=== PATIENT | female | born 1995 | race African-American/Black ===

== ENCOUNTER 2018-12-14 10:37 | Emergency (ER) | payer OTHER | END 2018-12-14 11:33 | disposition left against medical advice (07) | LOC: ERS 10:37 | DX: Z53.21 Procedure and treatment not carried out due to patient leaving prior to being seen by health care provider (principal) ==

== ENCOUNTER 2018-12-14 20:20 | Emergency (ER) | payer OTHER, SELFPAY ==
[2018-12-14 21:02] LABS: #Basophils 0.1 thou/uL (0.0-0.2); #Eosinphils 0.1 thou/uL (0.0-0.7); #Lymphocytes 1.7 thou/uL (1.20-3.40); #Monocytes 0.4 thou/uL (0.11-0.59); #Neutrophils 3.8 thou/uL (1.40-6.50); %Basophils 0.8 % (0.0-1.0); %Eosinophils 2.2 % (0.0-10.0); %Lymphocytes 28.1 % (21.0-51.0); %Monocytes 6.6 % (0.0-10.0); %Neutrophils 62.3 % (42.0-75.0); Hemoglobin 13.2 g/dL (12.0-16.0); Mean Corpuscular HGB CONC 32.4 g/dL (32.0-36.0); Mean Corpuscular Hemoglobin 28.1 pg (27.0-31.0); Mean Corpuscular Volume 86.6 fL (78.0-98.0); Mean Platelet Volume 8.5 fL (7.4-10.4); Platelet Count 215 thou/uL (130-400); RBC Distribution Width 12.1 % (11.5-14.5); Red Blood Cell (RBC) Count 4.69 mill/uL (4.20-5.40); White Blood Cell (WBC) Count 6.1 thou/uL (4.8-10.8)
[2018-12-14 21:06] LABS: Bacteria/HPF None Seen HPF (None Seen); Bilirubin Negative (Negative); Blood, Urine 2+ (Negative); Clarity Clear (Clear); Glucose, Urine (Dipstick) Normal (Negative); Leukocyte Negative Leu/uL (Negative); Nitrite Negative (Negative); Protein, Urine (Dipstick) Negative (Neg-Trace); RBC/HPF 0-3 HPF (0-3); Urobilinogen Normal mg/dL (Less than 2); WBC/HPF 0-3 HPF (0-3)
== END 2018-12-14 21:54 | disposition home or self-care (01) ==
LOC: ERS 20:20
DX: N93.9 Abnormal uterine and vaginal bleeding, unspecified (principal); F17.210 Nicotine dependence, cigarettes, uncomplicated
CPT/HCPCS: 36415; 81003; 81015; 84702; 85025; 86900; 86901; 87480; 87491; 87510; 87591; 87660; 99284

== ENCOUNTER 2019-01-03 18:53 | Emergency (ER) | payer SELFPAY | END 2019-01-03 20:23 | disposition home or self-care (01) | LOC: ERS 18:53 | DX: J20.8 Acute bronchitis due to other specified organisms (principal); F32.9 Major depressive disorder, single episode, unspecified; F17.210 Nicotine dependence, cigarettes, uncomplicated | CPT/HCPCS: 99283 ==

== ENCOUNTER 2019-01-09 14:48 | Emergency (ER) | payer SELFPAY ==
[2019-01-09] MEDS ORDERED: Acetaminophen 500 MG TAB ONE (15:03)
[2019-01-09] MEDS ORDERED: Ondansetron ODT 4 MG TAB ONE ×2 (15:03→15:54)
--- NOTE | 2019-01-09 15:18 | RAD ---
Chest AP view INDICATION: Vomiting COMPARISON: None FINDINGS: Lungs:The lungs are clear Cardiac silhouette:The cardiomediastinal silhouette appears within normal limits. Pulmonary vasculature:Normal Pleural spaces:No pleural effusion or pneumothorax is demonstrated. Upper abdomen:No abnormality seen. Osseous structures: No acute osseous abnormality. Additional findings:None. IMPRESSION: No acute cardiopulmonary abnormality.
== END 2019-01-09 16:00 | disposition home or self-care (01) ==
LOC: ERS 14:48
DX: R11.2 Nausea with vomiting, unspecified (principal); F32.9 Major depressive disorder, single episode, unspecified; F17.210 Nicotine dependence, cigarettes, uncomplicated
CPT/HCPCS: 71045; 87804; Q0162

== ENCOUNTER 2019-02-05 16:01 | Emergency (ER) | payer OTHER, SELFPAY ==
[2019-02-05 16:47] LABS: Bilirubin Negative (Negative); Blood, Urine Negative (Negative); Clarity Clear (Clear); Glucose, Urine (Dipstick) Normal (Negative); Leukocyte Negative Leu/uL (Negative); Nitrite Negative (Negative); Protein, Urine (Dipstick) 10 mg/dL (Neg-Trace); Urobilinogen Normal mg/dL (Less than 2)
[2019-02-05 16:48] LABS: #Eosinphils 0.1 thou/uL (0.0-0.7); #Lymphocytes 1.9 thou/uL (1.20-3.40); #Monocytes 0.5 thou/uL (0.11-0.59); #Neutrophils 5.3 thou/uL (1.40-6.50); %Basophils 0.4 % (0.0-1.0); %Eosinophils 0.9 % (0.0-10.0); %Lymphocytes 24.1 % (21.0-51.0); %Monocytes 6.3 % (0.0-10.0); %Neutrophils 68.4 % (42.0-75.0); Hemoglobin 12.7 g/dL (12.0-16.0); Mean Corpuscular HGB CONC 32.8 g/dL (32.0-36.0); Mean Corpuscular Hemoglobin 28.2 pg (27.0-31.0); Mean Corpuscular Volume 86.1 fL (78.0-98.0); Mean Platelet Volume 8.7 fL (7.4-10.4); Platelet Count 210 thou/uL (130-400); RBC Distribution Width 11.8 % (11.5-14.5); White Blood Cell (WBC) Count 7.8 thou/uL (4.8-10.8)
[2019-02-05 17:07] LABS: ALT (SGPT) 13 U/L (8-55); AST (SGOT) 14 U/L (5-34); Albumin 3.9 g/dL (3.5-5.0); Alkaline Phosphatase 65 U/L (40-110); Anion Gap 10 mmol/L (10-20); BUN (Urea Nitrogen) 7 mg/dL (7.0-18.7); Bilirubin, Total 0.2 mg/dL (0.2-1.2); Calc. Creatinine Clearance 0 mL/min (70-130); Calcium 8.8 mg/dL (7.8-10.44); Carbon Dioxide 24 mmol/L (22-29); Chloride 105 mmol/L (98-107); Estimated GFR-MDRD Greater than 90; Globulin 3.3 g/dL (2.4-3.5); Glucose 74 mg/dL (70-105); Potassium 3.9 mmol/L (3.5-5.1); Protein, Total 7.2 g/dL (6.0-8.3); Sodium 135 mmol/L (136-145)
--- NOTE | 2019-02-05 19:15 | ULT ---
Exam: Pelvic ultrasound HISTORY: Pelvic pain COMPARISON: None TECHNIQUE: Multiple grayscale and color Doppler images were obtained in a transabdominal and transvag inal pelvic ultrasound. Spectral analysis of the Doppler waveforms of the ovaries were performed. FINDINGS: CERVIX: Partially obscured due to shadowing. UTERUS AND ENDOMETRIAL CANAL: There is a fluid collection containing both a pole and a yolk sac . The crown-rump length measures 1.69 cm corresponding to gestational age by ultrasound of 8 weeks and 1 day. Cardiac Doppler evaluation does demonstrate heart tones with a heart rate of 1 71 bpm. There is an area of heterogeneity seen in a subchorionic location grossly measuring 1.9 cm x 1.4 cm. This is most suggestive of a subchorionic hemorrhage in the lower uterine segment. No free fluid is present. RIGHT OVARY: Normal flow, without focal mass. LEFT OVARY:There is a dominant anechoic structure in the left ovary measuring 2.3 cm which may repres ent a ovarian cyst and possibly corpus luteal cyst. Left ovary otherwise has a normal appearance with flow demonstrated. IMPRESSION: 1. Evidence of a subchorionic hemorrhage in the lower uterine segment with greatest dimension of 1.9 cm. Continued follow-up evaluation is recommended. 2. Single intrauterine gestation with heart tones documented. The estimated gestational age by measurement of the crown-rump length is 8 weeks and 1 day. 3. Left ovarian cyst, and this may represent corpus luteal cyst.
== END 2019-02-05 19:51 | disposition home or self-care (01) ==
LOC: ERS 16:01
DX: O20.8 Other hemorrhage in early pregnancy (principal); O99.341 Other mental disorders complicating pregnancy, first trimester; F32.9 Major depressive disorder, single episode, unspecified
CPT/HCPCS: 36415; 76856; 80053; 81003; 84702; 85025

== ENCOUNTER 2019-02-12 18:14 | Emergency (ER) | payer OTHER | END 2019-02-12 19:09 | disposition home or self-care (01) | LOC: ERS 18:14 | DX: O99.511 Diseases of the respiratory system complicating pregnancy, first trimester (principal); J10.1 Influenza due to other identified influenza virus with other respiratory manifestations; O99.341 Other mental disorders complicating pregnancy, first trimester; F32.9 Major depressive disorder, single episode, unspecified; Z3A.01 Less than 8 weeks gestation of pregnancy | CPT/HCPCS: 87804; 99283 ==

== ENCOUNTER 2019-02-21 20:31 | Emergency (ER) | payer OTHER ==
--- NOTE | 2019-02-21 21:17 | RAD ---
TWO VIEWS CHEST: 02/21/19 HISTORY: Chest pain. COMPARISON: 04/27/17 obtained from [facility]. FINDINGS: The cardiac silhouette and pulmonary vasculature are within normal limits. The lungs remain clear. Th ere has been no interval change from the prior exam. IMPRESSION: No acute cardiopulmonary process. POS: GREGORY
== END 2019-02-21 21:34 | disposition home or self-care (01) ==
LOC: ERS 20:31
DX: O99.89 Other specified diseases and conditions complicating pregnancy, childbirth and the puerperium (principal); R07.89 Other chest pain; O99.341 Other mental disorders complicating pregnancy, first trimester; F32.9 Major depressive disorder, single episode, unspecified; Z3A.10 10 weeks gestation of pregnancy
CPT/HCPCS: 71046

== ENCOUNTER 2019-03-02 22:17 | Emergency (ER) | payer OTHER ==
--- NOTE | 2019-03-02 23:02 | RAD ---
RADIOGRAPH CHEST 2 VIEWS: DATE: 03/02/2019 HISTORY: 23-year-old female with cough and chest pain FINDINGS: There is no airspace density, pulmonary edema, pleural effusion, pneumothorax, or cardiomegaly. IMPRESSION: No acute cardiopulmonary findings.
== END 2019-03-02 23:32 | disposition home or self-care (01) ==
LOC: ERS 22:17
DX: O99.511 Diseases of the respiratory system complicating pregnancy, first trimester (principal); J06.9 Acute upper respiratory infection, unspecified; O99.341 Other mental disorders complicating pregnancy, first trimester; F32.9 Major depressive disorder, single episode, unspecified; Z3A.11 11 weeks gestation of pregnancy
CPT/HCPCS: 71046; 87804; 93005

== ENCOUNTER 2019-04-08 11:56 | Emergency (ER) | payer MEDICAID ==
[2019-04-08 13:37] LABS: #Lymphocytes 1.3 thou/uL (1.20-3.40); #Monocytes 0.3 thou/uL (0.11-0.59); #Neutrophils 4.6 thou/uL (1.40-6.50); %Basophils 0.7 % (0.0-1.0); %Eosinophils 0.7 % (0.0-10.0); %Lymphocytes 21.1 % (21.0-51.0); %Monocytes 5.1 % (0.0-10.0); %Neutrophils 72.4 % (42.0-75.0); Hemoglobin 11.4 g/dL (12.0-16.0); Mean Corpuscular Hemoglobin 28.7 pg (27.0-31.0); Mean Platelet Volume 8.6 fL (7.4-10.4); Platelet Count 213 thou/uL (130-400); RBC Distribution Width 12.5 % (11.5-14.5); Red Blood Cell (RBC) Count 3.97 mill/uL (4.20-5.40); White Blood Cell (WBC) Count 6.3 thou/uL (4.8-10.8)
[2019-04-08 13:59] LABS: ALT (SGPT) 41 U/L (8-55); AST (SGOT) 26 U/L (5-34); Albumin 3.5 g/dL (3.5-5.0); Alkaline Phosphatase 65 U/L (40-110); Anion Gap 9 mmol/L (10-20); BUN (Urea Nitrogen) 7 mg/dL (7.0-18.7); Bilirubin, Total 0.2 mg/dL (0.2-1.2); Calc. Creatinine Clearance 0 mL/min (70-130); Carbon Dioxide 25 mmol/L (22-29); Chloride 107 mmol/L (98-107); Estimated GFR-MDRD Greater than 90; Globulin 3.2 g/dL (2.4-3.5); Glucose 73 mg/dL (70-105); Lipase 12 U/L (8-78); Potassium 4.1 mmol/L (3.5-5.1); Protein, Total 6.7 g/dL (6.0-8.3); Sodium 137 mmol/L (136-145)
[2019-04-08 14:19] LABS: Bilirubin Negative (Negative); Blood, Urine Negative (Negative); Clarity Turbid (Clear); Glucose, Urine (Dipstick) Normal (Negative); Leukocyte Negative Leu/uL (Negative); Nitrite Negative (Negative); Protein, Urine (Dipstick) Negative (Neg-Trace); Urobilinogen Normal mg/dL (Less than 2)
== END 2019-04-08 14:33 | disposition home or self-care (01) ==
LOC: ERS 11:56
DX: Z34.82 Encounter for supervision of other normal pregnancy, second trimester (principal); Z3A.16 16 weeks gestation of pregnancy
CPT/HCPCS: 36415; 80053; 81003; 83690; 85025

== ENCOUNTER 2019-05-06 11:06 | Emergency (ER) | payer MEDICAID, OTHER ==
[2019-05-06 12:13] LABS: Bilirubin Negative (Negative); Blood, Urine Negative (Negative); Clarity Clear (Clear); Glucose, Urine (Dipstick) Normal (Negative); Leukocyte Negative Leu/uL (Negative); Nitrite Negative (Negative); Protein, Urine (Dipstick) Negative (Neg-Trace); Urobilinogen Normal mg/dL (Less than 2)
[2019-05-06] MEDS ORDERED: Acetaminophen 500 MG TAB ONE (13:34)
== END 2019-05-06 13:45 | disposition home or self-care (01) ==
LOC: ERS 11:06
DX: O99.89 Other specified diseases and conditions complicating pregnancy, childbirth and the puerperium (principal); R51 Headache; R42 Dizziness and giddiness; O10.912 Unspecified pre-existing hypertension complicating pregnancy, second trimester; O99.342 Other mental disorders complicating pregnancy, second trimester; F32.9 Major depressive disorder, single episode, unspecified; Z3A.19 19 weeks gestation of pregnancy
CPT/HCPCS: 81003; 99284

== ENCOUNTER 2019-06-18 08:55 | Day surgery (SDC) | payer OTHER ==
[2019-06-18 09:31] VITALS: BMI 49.9
[2019-06-18 09:38] VITALS: BP 116/66; TEMP 98
[2019-06-18] MEDS ORDERED: hydrALAZINE 20 MG/ML VIAL SLOW IVP PRN (10:08)
[2019-06-18] MEDS ORDERED: Ondansetron ODT 8 MG TAB SL SCH (10:15)
[2019-06-18 11:18] LABS: Bilirubin Negative (Negative); Blood, Urine Negative (Negative); Clarity Clear (Clear); Glucose, Urine (Dipstick) Normal (Negative); Leukocyte 25 Leu/uL (Negative); Nitrite Negative (Negative); Protein, Urine (Dipstick) 10 mg/dL (Neg-Trace); RBC/HPF 0-3 HPF (0-3); Urobilinogen Normal mg/dL (Less than 2)
[2019-06-18 11:20] LABS: Bacteria/HPF 1+ HPF (None Seen)
--- NOTE | 2019-06-18 11:42 | HP ---
PRIMARY OB: Lee Ann Freeman MD CHIEF COMPLAINT: Fever, nausea, vomiting, diarrhea, and shortness of breath. HISTORY OF PRESENT ILLNESS: The patient is a 23-year-old, G3, P2, female, with an intrauterine at 27 weeks and 4 days, who is presenting to Labor and Delivery with a two-day complaint of nausea, vomiting, and diarrhea. She reports that she had measured temperature this morning of 100.4. She reports shortness of breath. Upon further questioning, the patient reports that her shortness of breath has been persistent with this and is not new onset. She denies cough. She denies inability to keep fluids down. The patient has not been hungry and has not been eating as much as usual. The patient reports that she is having [place], but denies any strong uterine contractions. She denies vaginal bleeding, leakage of fluid, urinary urgency or frequency. She does report she is being treated right now for a yeast infection and has been taking aiyx-ytc-xakhufa medications as prescribed by Dr. Freeman. The patient also reports she has had headache these last few days, but also headaches are common with her . The patient denies chest pain. She denies new rashes. She denies constipation. She denies muscle weakness. She is reporting back pain and hip pain and groin pain. The patient reports that she has been in contact with a friend, who was taken to the hospital for similar symptoms and is reported to have tested negative for COVID-19. PAST MEDICAL HISTORY: Depression. PAST SURGICAL HISTORY: Two prior C-sections. SOCIAL HISTORY: Denies drug, alcohol, or tobacco use. ALLERGIES: NO KNOWN DRUG ALLERGIES. MEDICATIONS: 1. vitamins. 2. Wmuw-zvk-ikkkido anti-yeast medication. OB LABS: Unavailable at time of dictation. REVIEW OF SYSTEMS: Per HPI. PHYSICAL EXAMINATION: VITAL SIGNS: Blood pressure of 116/66, pulse of 66, respiratory rate of 18, and temperature of 98. GENERAL: She appears to be in no acute distress. She is alert, oriented, cooperative, and pleasant to interact with. HEAD: Normocephalic and atraumatic. LUNGS: Clear to auscultation bilaterally. HEART: She has regular rate and rhythm. ABDOMEN: Gravid, soft, and nontender. There is no suprapubic tenderness. No upper abdominal tenderness. She does have SI joint tenderness. No CVA tenderness. EXTREMITIES: Nontender and nonedematous. : Exam has been deferred at this time. heart tracings, baseline in the 140s with moderate long-term variability. No accelerations. No decelerations. Appropriate for gestational age. Collected is a UA and a nasal swab for Coronavirus-19. ASSESSMENT AND PLAN: The patient is a 23-year-old multiparous female with an intrauterine at 27 weeks with a couple day history of nausea, occasional vomiting, diarrhea, and fever this morning. The patient at this time appears nontoxic and has normal vital signs at this time. The patient has declined any antiemetics. The patient is being discharged home with instructions to remain home until testing is completed. She has been given a work excuse requesting the same. The patient will be notified hopefully in the next 24 hours, the COVID-19 testing results. The patient is otherwise to follow up with her primary OB as scheduled. Dr. Freeman will be updated to this encounter. Job ID: [id number]
[2019-06-18 18:45] LABS: SARS-CoV-2 MS2 Positive; SARS-CoV-2 N Gene Negative; SARS-CoV-2 S Gene Negative; SARS-CoV-2 orf1ab Negative
--- NOTE | 2019-06-19 07:36 | PDOC.EVN ---
Event Note - Event Note Event Note: covid 19 test reviewed and neg. Pt contacted.
== END 2019-06-18 11:10 | disposition home or self-care (01) ==
LOC: L&D/OP 08:55
PROVIDERS: ATTEND Student in an Organized Health Care Education/Training Program
DX: O99.89 Other specified diseases and conditions complicating pregnancy, childbirth and the puerperium (principal); R50.9 Fever, unspecified; R06.02 Shortness of breath; R19.7 Diarrhea, unspecified; O21.2 Late vomiting of pregnancy; Z3A.27 27 weeks gestation of pregnancy; Z11.59 Encounter for screening for other viral diseases
CPT/HCPCS: 81001; 87635; 99284; Q0162; U0003

== ENCOUNTER 2019-07-18 16:25 | Emergency (ER) | payer OTHER ==
[2019-07-19 11:06] LABS: SARS-CoV-2 MS2 Positive; SARS-CoV-2 N Gene Negative; SARS-CoV-2 S Gene Negative; SARS-CoV-2 orf1ab Negative
== END 2019-07-18 18:05 | disposition home or self-care (01) ==
LOC: ERS 16:25
DX: Z20.828 Contact with and (suspected) exposure to other viral communicable diseases (principal); O99.342 Other mental disorders complicating pregnancy, second trimester; F32.9 Major depressive disorder, single episode, unspecified
CPT/HCPCS: 87635; 99283; U0003

== ENCOUNTER 2019-08-12 22:02 | Day surgery (SDC) | payer OTHER ==
[2019-08-12 22:33] VITALS: BMI 49.8
[2019-08-12] MEDS ORDERED: hydrALAZINE 20 MG/ML VIAL SLOW IVP PRN (23:22)
[2019-08-12] MEDS: Acetaminophen/Codeine 30-300mg Tablet PO SCH ×2 (23:39→23:40)
--- NOTE | 2019-08-13 07:37 | PRG ---
DATE OF SERVICE: 08/12/2019 CHIEF COMPLAINT: Back pain. PRIMARY OB: Dr. Lee Ann Freeman. HISTORY OF PRESENT ILLNESS: The patient is a 23-year-old, G3, P2 female with an intrauterine at 35 weeks and 4 days, presenting to Labor and Delivery with 1-day history of worsening back pain. She reports that she has had this lower back pain now for several weeks and that it has just gotten worse today. She reports that the pain has made it very difficult for her to move without pain. The patient does have a history of 2 prior . She has attempted topical lidocaine and Tylenol. The patient denies fever. She does report headaches, does not have one currently. Reports morning nausea and occasional vomiting. Denies diarrhea. Does report constipation. Denies any new rashes. Reports hip problems accompanying her back pain. Denies vaginal bleeding, leakage of fluid, urinary urgency or frequency. PAST MEDICAL HISTORY: Depression. PAST SURGICAL HISTORY: Two prior C-sections. SOCIAL HISTORY: Denies drug, alcohol, or tobacco use. ALLERGIES: VITAMINS. MEDICATIONS: 1. vitamins. 2. Cihq-dpo-qwcrzld Tylenol. 3. Topical lidocaine in the recent past. OB LABS: Unavailable at time of dictation. REVIEW OF SYSTEMS: Per HPI. PHYSICAL EXAMINATION: VITAL SIGNS: Blood pressure 108/55, pulse of 79, respiratory rate of 18, saturating 98% on room air. GENERAL: She appears to be in some distress with activity and movement and none at rest. She is otherwise alert, oriented, cooperative, and pleasant to interact with. HEAD: Normocephalic, atraumatic. LUNGS: Clear to auscultation bilaterally. HEART: Regular rate and rhythm. ABDOMEN: Gravid, soft, nontender. She does have a lot of point tenderness in her upper gluteal region and around her SI joints, both nothing primarily muscular. EXTREMITIES: Nontender, nonedematous. PELVIS: Cervical exam per nursing staff is fingertip thick and -2 station. heart tracing shows the fetus with a baseline in the 140s with moderate long-term variability, positive 15 x 15 accelerations, no decelerations. Tocometer showing some irritability, but does not appear to match her pain. ASSESSMENT AND PLAN: The patient is a 23-year-old multiparous female, presenting with worsening back pain that seems to be primarily musculoskeletal in nature. We have given her two Tylenol No. 3 to help with the pain in the short run and have given her some gentle stretching exercises that may give her some relief in the long run. The patient has been counseled that if her pain persists over the next couple of days to give her primary provider a call as her next appointment is not until the 22 of August. Fetus has a category 1 tracing and reactive NST. The patient has been given labor precautions. Job ID: [id number]
== END 2019-08-12 23:45 | disposition home or self-care (01) ==
LOC: L&D/OP 22:02
PROVIDERS: ATTEND Student in an Organized Health Care Education/Training Program
DX: O99.89 Other specified diseases and conditions complicating pregnancy, childbirth and the puerperium (principal); M54.5 Low back pain; O34.219 Maternal care for unspecified type scar from previous cesarean delivery; Z3A.35 35 weeks gestation of pregnancy
CPT/HCPCS: 99282

== ENCOUNTER 2019-08-31 19:24 | Day surgery (SDC) | payer OTHER ==
[2019-08-31 19:59] VITALS: BP 120/73; TEMP 98.8; BMI 49.9
[2019-08-31] MEDS ORDERED: hydrALAZINE 20 MG/ML VIAL SLOW IVP PRN (20:23)
--- NOTE | 2019-08-31 20:24 | PDOC.FPROB ---
FMR OB H&P: HPI - History of Present Illness Chief Complaint: elevated BP, decreased FM Indentification: 23 yo at 37.4 wga History of Present Illness: Patient is here concerned about her BP. She went to [facility] today and checked her BP which was 139/80 with a HR of 103. She had NAGEL earlier today which got better with Tylenol. However, she has felt fatigued all day and had decreased FM yesterday and today. Endorses blurry and double vision, some white spots in her vision. Denies RUQ pain. She reports normal appetite today and normal food and water consumption. She has appt yesterday with Dr. Freeman and reports normal BP there along with normal ultrasound since she noted the decreased FM. Denies ctx, VB, VD, LOF. Primary Care Physician: Pete. FMR OB H&P: Current - Care : 3 Para: 2001 Gestational age: 37.4 Due date: 09/18/2019 Course/Complications: Plan for repeat 09/13/2019. On ASA81 due to history of pre-eclampsia Obesity. FMR OB H&P: History - Past Medical History PMH: Depression. Takes zoloft. - OB History OB History: Two prior c-sections. First for Pre-E. Second : repeat. 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 - Surgical History Sx History: x2 Lap curtis [place] teeth removal. - Social History Social History: Denies smoking, drinking, drugs. - Family History Family History: Denies. FMR OB H&P: Medications - Current Home Medications: Medication Instructions Recorded Confirmed Type PNV#24/Iron AA Nadja/FA/DHA 1 each PO DAILY 09/02/13 08/31/19 History [ DHA+Complete ] Aspirin Chewable [Aspirin Chewable 81 mg PO DAILY 06/18/19 08/31/19 History Tablet] Sertraline HCl 50 mg PO DAILY 06/18/19 08/31/19 History Allergies/Adverse Reactions: Allergies Allergy/AdvReac Type Severity Reaction Status Date / Time No Known Allergies Allergy Verified 08/31/19 19:51 FMR OB H&P: ROS - Review of Systems General: reports: fatigue. denies: fever/chills, weight/appetite/sleep changes , recent trauma Eyes: reports: vision changes, double vision. denies: eye pain ENT: denies: sore throat Cardiovascular: reports: edema (waxes and wanes). denies: chest pain Respiratory: denies: cough, shortness of breath Gastrointestinal: reports: constipation. denies: abdominal pain, nausea, vomiting Genitourinary (Female): reports: vaginal pressure. denies: dysuria, vaginal discharge, vaginal bleeding, contractions Musculoskeletal: denies: pain Neurologic: denies: syncope, weakness Integumentary: denies: itching, rash Psychological: reports: depression. denies: anxiety FMR OB H&P: Vital Signs - Maternal Vital signs: Vital Signs - First Documented Temp Pulse Resp BP 98.8 F 100 18 120/73 08/31/19 19:49 08/31/19 19:49 08/31/19 19:49 08/31/19 19:49 - Heart Tones Baseline: 140 (reactive) Variability: moderate Acceleration: present (x3) Deceleration: absent [place] contractions every: 1 ctx over 20 min FMR OB H&P: Physical Exam - Physical Exam General: NAD, awake, alert and oriented HEENT: normocephalic and atraumatic, EOMI, MMM, no scleral icterus, grossly normal vision, grossly normal hearing Neck: trachea midline Heart: RRR, normal S1/S2, no murmurs/rubs/gallops General: CTAB, no respiratory distress Abdomen: soft, gravid, non-tender Musculoskeletal: pulses present Neurological: DTR +1, no clonus Skin: no rash, no jaundice Lymphatic: no unusual bruising or bleeding Psychiatric: intact recent and remote memory, normal mood and affect FMR OB H&P: A/P - Problem List (1) Elevated blood pressure affecting in third trimester, antepartum Status: Acute Code(s): O16.3 - UNSPECIFIED MATERNAL HYPERTENSION, THIRD TRIMESTER (2) Decreased movement Status: Acute Code(s): O36.8190 - DECREASED MOVEMENTS, UNSP TRIMESTER, UNSP Disposition: observe on L&D for at least 2 hours to watch BPs. Repeat BPs q15 min. Discussion: Date/Time: 08/31/192022 23 yo at 37.4 wga here for: Elevated BP reading Headache - currently BP wnl - history of pre-eclampsia and on aspirin - monitor q15 min for the next two hours - if mild range pressures > 140/90, we will do Pre-E workup of CBC, CMP, LDH, and urine protein/creatinine - Tylenol 1g for headache. Decreased FM - reactive NST, reassuring - continues EFM while here. If NST becomes non-reassuring, will order BPP. This H&P was discussed with Dr. Esparza, who agrees with the above documentation and plan. Signature: Lashell Moreno MD PGY2 Addendum - Attending - Attending Attestation Date/Time: 09/03/19 0810 I personally evaluated the patient and discussed the management with Dr. Moreno I agree with the History, Examination, Assessment and Plan documented above with any addition or exceptions noted below.
[2019-08-31] MEDS ORDERED: Acetaminophen 500 MG TAB PO SCH (20:30)
--- NOTE | 2019-08-31 21:53 | PDOC.BPN ---
- Brief Progress Note Reassessment: Patient BPs 120s/70s over past 2 hours. NST has stayed reactive. Discharged with return precautions. F/U w/ PCP as scheduled.
== END 2019-08-31 21:55 | disposition home or self-care (01) ==
LOC: L&D/OP 19:24
PROVIDERS: ATTEND Student in an Organized Health Care Education/Training Program
DX: O99.89 Other specified diseases and conditions complicating pregnancy, childbirth and the puerperium (principal); R03.0 Elevated blood-pressure reading, without diagnosis of hypertension; R51 Headache; O36.8130 Decreased fetal movements, third trimester, not applicable or unspecified; O34.219 Maternal care for unspecified type scar from previous cesarean delivery; Z3A.37 37 weeks gestation of pregnancy; Z79.82 Long term (current) use of aspirin; Z79.899 Other long term (current) drug therapy
CPT/HCPCS: 99283

== ENCOUNTER 2019-09-03 17:13 | Inpatient (IN) | payer OTHER ==
[2019-09-03 17:32] VITALS: BMI 49.9
--- NOTE | 2019-09-03 19:03 | PDOC.LDHP ---
Labor and Delivery H&P Chief complaint: decreased movement HPI: 23yo with 2 prior CS at 37 weeks 6 days, here for some decreased FM. Scheduled for repeat CS on 09/13/19. No LOF, No VB, no fevers, no covid. Review of Systems: complete ROS and negative as per HPI Current gestational age (weeks): 37 (6 days) Dating criteria: last menstrual period Grav: 3 Para: 2 OB History Details: CS x2 Current complications: none Abnormal US findings: No Current medications: pre- vitamins Previous surgical history: low tranverse CS (X2) Allergies/Adverse Reactions: Allergies Allergy/AdvReac Type Severity Reaction Status Date / Time No Known Allergies Allergy Verified 09/03/19 17:30 Social history: none - Physical Exam Vital signs reviewed and normal: yes (115/70 80s, RR 18, FHTs 130s) General: NAD Heart: RRR Lungs: CTAB Abdomen: gravid Extremeties: no edema FHT: category 1 [place] contractions every: none - Vaginal Exam cm dilated: 1 (by RN) Effacement: 50% Station: -3 - Assessment Decreased FM at 37 weeks 6 days, now with some movement - Plan Plan: observation in L&D, other (NST reactive with some CTXs on toco, [place].)
--- NOTE | 2019-09-03 19:22 | PDOC.BPN ---
- Brief Progress Note Patient has requested from me and Renetta (RN) to talk and review with her physician. We will of course call Dr Freeman and let her talk to the patient.
--- NOTE | 2019-09-03 21:04 | ULT ---
EXAM: US Biophysical Profile PROVIDED CLINICAL HISTORY: Decreased movement. COMPARISON: None FINDINGS: Multiple transabdominal sonographic images of the pelvis are obtained. There is evidence of a single intrauterine gestation in cephalic presentation. Cardiac Doppler demons trates heart tones with a heart rate of 136 bpm. The placenta is located posteriorly without findings to suggest placenta previa. Subjectively, there is a normal amount of amniotic fluid . The amniotic fluid index measures 19.6 cm. The cervical length measures 3.8 cm based on transabdominal imaging. A score of 2 was obtained each for tone, breathing, movements, and amniotic fluid v olume. This examination was not performed for evaluation of the anatomical structures. IMPRESSION: 1. Single intrauterine gestation in cephalic presentation with heart tones documented. 2. A total biophysical profile score of 8 out of 8 is obtained. 3. Amniotic fluid index of 19.6 cm.
[2019-09-03] MEDS ORDERED: Butorphanol Tartrate 1 MG/ML VIAL SLOW IVP PRN (21:21)
[2019-09-03] MEDS ORDERED: hydrALAZINE 20 MG/ML VIAL SLOW IVP PRN (21:21)
[2019-09-03] MEDS ORDERED: Acetaminophen 500 MG TAB PO PRN (21:21)
[2019-09-03] MEDS ORDERED: Promethazine HCl 25 MG/ML VIAL IM PRN (21:21)
[2019-09-03] MEDS ORDERED: Ondansetron PF 4 MG/2 ML Vial IVP PRN (21:21)
[2019-09-03] MEDS ORDERED: Bicitra 30 ML UDCUP PO SCH (21:30)
[2019-09-03] MEDS: Lactated Ringer's 1,000 ML IV SCH ×2 (21:31→22:28)
[2019-09-03 21:45] LABS: Hemoglobin 12.2 g/dL (12.0-16.0); Mean Corpuscular HGB CONC 32.6 g/dL (32.0-36.0); Mean Corpuscular Hemoglobin 27.5 pg (27.0-31.0); Mean Corpuscular Volume 84.4 fL (78.0-98.0); Mean Platelet Volume 9.4 fL (7.4-10.4); Platelet Count 181 thou/uL (130-400); RBC Distribution Width 12.9 % (11.5-14.5); Red Blood Cell (RBC) Count 4.44 mill/uL (4.20-5.40); White Blood Cell (WBC) Count 9.4 thou/uL (4.8-10.8)
[2019-09-03] MEDS ORDERED: CEFAZOLIN 3 GM in Sodium Chloride 0.9% 100 ML IVPB SCH (21:45)
[2019-09-03 22:21] LABS: Syphilis Antibody Nonreactive (Nonreactive); Syphilis Antibody Index 0.02 S/CO (<1.00 Non-Reactive)
[2019-09-04 00:38] LABS: HBSAg Index 0.12 S/CO (0-0.99); Hep B Surf Ag Non-Reactive S/CO (NonReactive)
[2019-09-04] MEDS ORDERED: Fentanyl 100 MCG/2 ML VIAL ONE (06:57)
[2019-09-04] MEDS ORDERED: Oxytocin 10 UNITS/ML VIAL ONE (06:58)
[2019-09-04] MEDS ORDERED: EPHEDRINE 25 MG/5 ML SYRINGE ONE (06:58)
[2019-09-04] MEDS ORDERED: MORPHINE 5 MG/10 ML PF VIAL ONE (06:58)
--- NOTE | 2019-09-04 07:18 | PDOC.LDPN ---
Labor & Delivery Progress Note - Subjective Subjective: painful contractions - Objective Vital signs reviewed and normal: yes General: NAD Uterine fundus: non tender FHT: category 1 [place] contractions every: 3-5min -: 23yo at 38w0d with decreased movement and painful contractions with 2 previous CS. Plan for RCS Pt desires to proceed. All questions answered.
--- NOTE | 2019-09-04 07:50 | PDOC.OPDEL ---
OB Operative/Delivery Note Delivery Dr/Surgeon: Pete Assist: Thierno Pre-Delivery Diagnosis: non-reassuring tracing (decreased movement, early labor, 38w, prior cs x 2) Procedure/Post Delivery Dx: repeat low transverse CS Weeks gestation: 38 Anesthesia: spinal - Findings A Sex: female Weight: 6 lb 5 oz - 1 min: 7 - 5 min: 9 - Additional Findings/Plan Placenta delivered: spontaneous findings: low transverse hysterotomy without extension, normal uterus, normal tubes, normal ovaries Estimated blood loss: 880cc Post delivery plan: routine recovery
[2019-09-04] MEDS ORDERED: Methylergonovine 0.2 MG/ML VIAL ONE ×2 (08:19→10:43)
[2019-09-04] MEDS ORDERED: NS / Oxytocin 40 units/1000ml 1,000 ML ONE (09:03)
[2019-09-04] MEDS ORDERED: Ketorolac Tromethamine 30 MG/ML VIAL ONE (09:42)
[2019-09-04] MEDS: Ketorolac Tromethamine 30 MG/ML VIAL IVP PRN ×3 (09:44→22:39)
[2019-09-04] MEDS ORDERED: Naloxone HCl 0.4 mg/ml Vial IVP PRN ×2 (10:31)
[2019-09-04] MEDS ORDERED: Promethazine HCl 25 MG SUPP PR PRN (10:31)
[2019-09-04] MEDS ORDERED: diphenhydrAMINE 50 MG/ML VIAL IVP PRN (10:31)
[2019-09-04] MEDS ORDERED: Promethazine HCl 25 MG/ML VIAL IM PRN ×2 (10:31→10:41)
[2019-09-04] MEDS ORDERED: Naloxone HCl 0.4 mg/ml Vial IV PRN (10:31)
[2019-09-04] MEDS ORDERED: Ondansetron PF 4 MG/2 ML Vial IVP PRN ×2 (10:31→10:41)
[2019-09-04] MEDS ORDERED: Acetaminophen 325 MG TAB PO PRN (10:41)
[2019-09-04] MEDS ORDERED: hydrALAZINE 20 MG/ML VIAL SLOW IVP PRN (10:41)
[2019-09-04] MEDS ORDERED: Bisacodyl 10 MG SUPP PR PRN (10:41)
[2019-09-04] MEDS ORDERED: Adacel (T-DAP) 0.5 ML SYRINGE IM ONE (10:41)
[2019-09-04] MEDS ORDERED: Communication Order-Pharmacy FS SCH (10:45)
[2019-09-04] MEDS: Lactated Ringer's 1,000 ML IV SCH (11:56)
--- NOTE | 2019-09-04 12:39 | OP ---
DATE OF PROCEDURE: 09/04/2019 PREOPERATIVE DIAGNOSES: 1. Intrauterine at 38 weeks 1 day. 2. Decreased movement. 3. Early labor. 4. Prior section x2. POSTOPERATIVE DIAGNOSES: 1. Intrauterine at 38 weeks 1 day. 2. Decreased movement. 3. Early labor. 4. Prior section x2. PROCEDURE PERFORMED: Repeat low transverse section via Pfannenstiel skin incision. ANESTHESIA: Spinal. INTERLOCKER MAINTAINER SURGEON: Kenya Pa MD QUANTITATIVE BLOOD LOSS: 808 mL. COMPLICATIONS: None. DRAINS: Abad catheter. PATHOLOGY: None. FINDINGS: Female infant, cephalic presentation, Apgars 9 and 9, weight is pending. Omental adhesions to the anterior abdominal wall. Hysterotomy without extension. Good uterine tone. Normal uterus, ovaries, and tubes bilaterally. DESCRIPTION OF PROCEDURE: The patient was taken to the operating room, where spinal anesthesia was obtained without difficulty. The patient was prepped and draped in a sterile fashion in a dorsal supine position with a leftward tilt. After ensuring adequacy of anesthesia, a Pfannenstiel skin incision was made and carried down to the underlying subcutaneous tissue with a knife. The fascia was nicked in the midline with a knife and carried laterally with the Gonzales scissors. The superior aspect of the fascia was tented with 2 Kochers and dissected off the rectus with Bovie cautery. At that time, the peritoneum was bluntly entered into and no underlying structures were noted during the dissection with cautery. The inferior aspect of the fascia was tented with 2 Kochers and dissected off the rectus with the Gonzales scissors down to the pubic symphysis. The peritoneum was then incised ensuring that no bladder was adherent to the anterior abdominal wall and the incision was manually retracted. The Carlos O retractor was placed. The vesicouterine peritoneum was incised with the Metzenbaum and taken down below the level of where the hysterotomy would be. The uterus was incised in a transverse fashion and extended with a Lewis maneuver. The 's head was brought to the hysterotomy and delivered atraumatically with fundal pressure. The 's cord was clamped and infant handed to awaiting Arley team. Cord blood was obtained and placenta was allowed to spontaneously deliver. The uterus was boggy and placed back into the abdomen after cleaning out all clots and debris. Methergine was called for. The hysterotomy was repaired with #1 Monocryl in a running locking fashion. The uterine tone improved. An additional mzrpkl-gg-xrhcl stitch in the mid hysterotomy was placed for hemostasis, which was noted to be excellent. Irrigation was performed of the pelvis and suctioned. Hemostasis was again noted. The Carlos O retractor was removed. Rectus muscles were examined and noted to be hemostatic. The fascia was reapproximated with 0 PDS x2 sutures with excellent reapproximation. The subcutaneous tissue was irrigated and cauterized of any bleeders and reapproximated with a 2-0 plain gut in a running fashion. The skin was closed with 4-0 Monocryl in a subcuticular fashion and Dermabond was applied as well as a pressure dressing. The patient tolerated the procedure well. Sponge, lap, and needle counts correct x2. The patient was taken to recovery room in stable condition. The patient received Ancef 3 g prior to the procedure. Job ID: [id number]
[2019-09-04] MEDS: Ibuprofen 800 MG TAB PO SCH (12:54)
[2019-09-04] MEDS ORDERED: EPINEPHrine 1 MG/10 ML Abboject SYRINGE ONE (13:52)
[2019-09-04] MEDS: diphenhydrAMINE 25 MG CAP PO PRN (18:37)
[2019-09-04] MEDS: Lanolin Ointment 7 GM TUBE TOP PRN (21:41)
[2019-09-04] MEDS: Docusate Calcium (SURFAK) 240 MG CAP PO SCH (21:42)
[2019-09-04] MEDS: Simethicone Chewable 80 MG TAB PO PRN (21:42)
[2019-09-04] MEDS: Ferrous Sulfate 325 MG TAB PO SCH (21:44)
[2019-09-05] MEDS: Ibuprofen 800 MG TAB PO SCH ×4 (01:05→22:27)
[2019-09-05] MEDS: Simethicone Chewable 80 MG TAB PO PRN ×3 (05:12→20:41)
[2019-09-05 05:38] LABS: Hemoglobin 10.1 g/dL (12.0-16.0); Mean Corpuscular HGB CONC 31.6 g/dL (32.0-36.0); Mean Corpuscular Hemoglobin 27.5 pg (27.0-31.0); Mean Platelet Volume 8.9 fL (7.4-10.4); Platelet Count 158 thou/uL (130-400); RBC Distribution Width 12.8 % (11.5-14.5); Red Blood Cell (RBC) Count 3.69 mill/uL (4.20-5.40); White Blood Cell (WBC) Count 8.4 thou/uL (4.8-10.8)
[2019-09-05] MEDS: Ferrous Sulfate 325 MG TAB PO SCH (07:38)
[2019-09-05] MEDS: diphenhydrAMINE 25 MG CAP PO PRN (09:04)
[2019-09-05] MEDS: Prenatal Vitamin 1 TAB PO SCH (09:04)
[2019-09-05] MEDS: Docusate Calcium (SURFAK) 240 MG CAP PO SCH ×2 (09:04→22:27)
[2019-09-05] MEDS: HYDROcodone/Acetaminophen 5/325 mg Tablet PO PRN ×3 (10:10→20:41)
--- NOTE | 2019-09-05 15:01 | PDOC.PP ---
Post Progress Note Post Day #: 1 PO intake tolerated: yes Flatus: yes Ambulation: yes Vital Signs (12 hours) Temp Pulse Resp BP Pulse Ox 09/05/19 08:26 98.0 F 73 20 94/54 L 99 09/05/19 04:40 98.2 F 81 20 104/56 L Weight Weight 319 lb - Physical Examination General: NAD Respiratory: non-labored breathing Abdominal: no distention, appropriately TTP Fundus firm & at: umb Skin: CS incision dry & intact Neurological: no gross focal deficits Psychiatric: normal affect Result Diagrams: 09/05/19 05:23 Additional Labs: Post Labs Blood Type O POSITIVE 09/03/19 21:37 Hep Bs Antigen Non-Reactive S/CO (NonReactive) 09/03/19 21:37 - Assessment/Plan POD1 s/p RCS VSSAF Doing well, met milestones Mild anemia d/t surgical blood loss, cont iron and pnv, asymptomatic Rh pos RImm cont postop care.
[2019-09-05] MEDS: Lanolin Ointment 7 GM TUBE TOP PRN ×2 (16:25→16:26)
[2019-09-06] MEDS: Simethicone Chewable 80 MG TAB PO PRN ×4 (01:06→16:59)
[2019-09-06] MEDS: Ferrous Sulfate 325 MG TAB PO SCH ×3 (02:24→22:56)
[2019-09-06] MEDS: Ibuprofen 800 MG TAB PO SCH ×3 (06:18→22:06)
[2019-09-06] MEDS: HYDROcodone/Acetaminophen 5/325 mg Tablet PO PRN ×4 (06:19→22:06)
[2019-09-06] MEDS: Lanolin Ointment 7 GM TUBE TOP PRN (08:37)
[2019-09-06] MEDS: Prenatal Vitamin 1 TAB PO SCH (08:37)
[2019-09-06] MEDS: Docusate Calcium (SURFAK) 240 MG CAP PO SCH ×2 (08:37→22:06)
--- NOTE | 2019-09-06 09:40 | PDOC.PP ---
Post Progress Note Post Day #: 2 PO intake tolerated: yes Flatus: yes Ambulation: yes Vital Signs (12 hours) Temp Pulse Resp BP Pulse Ox 09/06/19 08:08 98.6 F 82 20 119/66 100 09/06/19 06:15 98.6 F 77 14 114/63 09/06/19 00:30 98.8 F 80 14 115/56 L Weight Weight 319 lb - Physical Examination General: NAD Respiratory: non-labored breathing Abdominal: no distention, appropriately TTP Fundus firm & at: umb Skin: CS incision dry & intact Neurological: no gross focal deficits Psychiatric: normal affect Result Diagrams: 09/05/19 05:23 Additional Labs: Post Labs Blood Type O POSITIVE 09/03/19 21:37 Hep Bs Antigen Non-Reactive S/CO (NonReactive) 09/03/19 21:37 - Assessment/Plan POD2 s/p RCS VSSAF Met all postop milestones Plan DC home tomorrow Cont Iron on DC. Cont sertraline for depression, incr dose to 100mg discussed. Meds called out.
[2019-09-06 20:39] VITALS: TEMP 98.4
[2019-09-07] MEDS: Simethicone Chewable 80 MG TAB PO PRN ×2 (05:19→09:00)
[2019-09-07] MEDS: HYDROcodone/Acetaminophen 5/325 mg Tablet PO PRN (05:19)
[2019-09-07] MEDS: Ibuprofen 800 MG TAB PO SCH (05:19)
--- NOTE | 2019-09-07 08:30 | PDOC.PP ---
Post Progress Note Post Day #: 3 Subjective: doing well, ready for DC no concerns PO intake tolerated: yes Flatus: yes Ambulation: yes Weight Weight 319 lb - Physical Examination General: NAD Respiratory: non-labored breathing Abdominal: no distention Neurological: no gross focal deficits Psychiatric: normal affect Result Diagrams: 09/05/19 05:23 Additional Labs: Post Labs Blood Type O POSITIVE 09/03/19 21:37 Hep Bs Antigen Non-Reactive S/CO (NonReactive) 09/03/19 21:37 - Assessment/Plan POD3 doing well, plan for DC today.
[2019-09-07 08:55] VITALS: BP 116/63
[2019-09-07] MEDS: Prenatal Vitamin 1 TAB PO SCH (09:00)
[2019-09-07] MEDS: Ferrous Sulfate 325 MG TAB PO SCH (09:00)
[2019-09-07] MEDS: Docusate Calcium (SURFAK) 240 MG CAP PO SCH (09:00)
--- NOTE | 2019-09-09 08:33 | PQF ---
CLINICAL DOCUMENTATION CLARIFICATION FORM: Dear : Lee Ann Freeman Date / Time: 09/09/2019 Please exercise your independent, professional judgment in responding to the clarification form. Clinical indicators are provided on the bottom of this form for your review Please check appropriate box(es): [ ] Acute blood loss anemia [ X ] Post-op anemia related to acute blood loss [ ] Chronic Anemia: [ ] Blood loss [ ] Other [ ] Other diagnosis [ ] Unable to determine In addition, please specify: Present on Admission (POA): [ ] Yes [X ] No [ ] Unable to determine To be completed by CDI/Coding staff for physician review: Present Clinical Indicators - Signs / Symptoms / Labs Results and Location in Medical Record [ x ] Mild anemia d/t surgical blood loss, cont iron and pnv Progress note 09/04 by Lee Ann Freeman MD [ x ] Hemoglobin/hematocrit is 12.2/37.5 on 09/02 and 10.1/32.1 on 09/04 Laboratory [ x ] Quantitative blood loss: 808 mL OP report 09/03 by Lee Ann Freeman MD Present Risk Factors Results and Location in Medical Record [ x ] Repeat low transverse section delivery OP report 09/03 by Lee Ann Freeman MD Present Treatments Results and Location in Medical Record [ x ] Continue iron and pnv Progress note 09/04 by Lee Ann Freeman MD [ x ] Continue iron on DC Progress note 09/05 by Lee Ann Freeman MD [facility] Signature: [id number] Phone #: Date/Time: 09/09/2019 This is a permanent part of the Medical Record [facility]
== END 2019-09-07 12:30 | disposition home or self-care (01) | DRG 787 ==
LOC: L&D/OP 17:13 → L&D 23:43 → 3SW 09-04 10:34
PROVIDERS: ADMIT Student in an Organized Health Care Education/Training Program; ATTEND Student in an Organized Health Care Education/Training Program
PROC: 10D00Z1 Extraction of Products of Conception, Low, Open Approach (ICD-10-PCS; principal; 2019-09-04)
DX: O34.211 Maternal care for low transverse scar from previous cesarean delivery (principal); D62 Acute posthemorrhagic anemia; O36.8130 Decreased fetal movements, third trimester, not applicable or unspecified; Z37.0 Single live birth; Z3A.38 38 weeks gestation of pregnancy; O99.62 Diseases of the digestive system complicating childbirth; K66.0 Peritoneal adhesions (postprocedural) (postinfection); N85.8 Other specified noninflammatory disorders of uterus; O99.89 Other specified diseases and conditions complicating pregnancy, childbirth and the puerperium; O99.02 Anemia complicating childbirth; O99.344 Other mental disorders complicating childbirth; F32.9 Major depressive disorder, single episode, unspecified
CPT/HCPCS: 36415; 76819; 85027; 86780; 86850; 86900; 86901; 87340; 99285; J0171; J0595; J0690; J1200; J1885; J2210; J2274; J2590; J3010; J3490; Q0163

== ENCOUNTER 2019-11-13 09:57 | Emergency (ER) | payer OTHER ==
[2019-11-13 17:40] LABS: SARS-CoV-2 MS2 Positive; SARS-CoV-2 N Gene Negative; SARS-CoV-2 S Gene Negative; SARS-CoV-2 by NAA Not Detected (NotDetected); SARS-CoV-2 orf1ab Negative
== END 2019-11-13 10:31 | disposition home or self-care (01) ==
LOC: ERS 09:57
DX: R05 Cough (principal); R09.81 Nasal congestion; R19.7 Diarrhea, unspecified; R11.0 Nausea; Z20.828 Contact with and (suspected) exposure to other viral communicable diseases; F32.9 Major depressive disorder, single episode, unspecified; F17.210 Nicotine dependence, cigarettes, uncomplicated; Z79.899 Other long term (current) drug therapy
CPT/HCPCS: 87635; 99284; U0003

== ENCOUNTER → 2020-01-09 | Emergency (ER) | payer OTHER | LOC: ERS 20:25 | DX: Z20.828 Contact with and (suspected) exposure to other viral communicable diseases (principal); F32.9 Major depressive disorder, single episode, unspecified; F17.210 Nicotine dependence, cigarettes, uncomplicated | CPT/HCPCS: 99281 ==

== ENCOUNTER 2020-03-17 10:07 | Emergency (ER) | payer OTHER ==
[2020-03-17 16:21] LABS: SARS-CoV-2 PCR by NAA Not Detected (NotDetected)
== END 2020-03-17 10:56 | disposition home or self-care (01) ==
LOC: ERS 10:07
DX: R50.9 Fever, unspecified (principal); Z20.822 Contact with and (suspected) exposure to COVID-19; F17.210 Nicotine dependence, cigarettes, uncomplicated
CPT/HCPCS: 87635; 99283; U0003; U0005

== ENCOUNTER 2020-06-18 14:11 | Emergency (ER) | payer OTHER ==
[2020-06-18] MEDS ORDERED: Ondansetron ODT 4 MG TAB ONE (14:55)
[2020-06-18 18:21] LABS: SARS-CoV-2 PCR by NAA Not Detected (NotDetected)
== END 2020-06-18 15:08 | disposition home or self-care (01) ==
LOC: ERS 14:11
DX: B34.9 Viral infection, unspecified (principal); Z20.822 Contact with and (suspected) exposure to COVID-19; F17.210 Nicotine dependence, cigarettes, uncomplicated
CPT/HCPCS: 87635; 99284; Q0162; U0003; U0005

== ENCOUNTER 2021-01-29 19:44 | Emergency (ER) | payer OTHER | END 2021-01-29 20:25 | disposition home or self-care (01) | LOC: ERS 19:44 | DX: K02.9 Dental caries, unspecified (principal); F17.210 Nicotine dependence, cigarettes, uncomplicated | CPT/HCPCS: 99281 ==

== ENCOUNTER 2022-05-09 09:47 | Emergency (ER) | payer OTHER ==
[2022-05-09] MEDS ORDERED: predniSONE 20 MG TAB ONE (10:21)
[2022-05-09] MEDS ORDERED: Ibuprofen 200 MG TAB ONE (10:21)
[2022-05-09 11:11] LABS: SARS-CoV-2 NAA Rapid Test Not Detected (NotDetected)
== END 2022-05-09 11:29 | disposition home or self-care (01) ==
LOC: ERS 09:47
DX: J02.9 Acute pharyngitis, unspecified (principal); B34.9 Viral infection, unspecified; F17.210 Nicotine dependence, cigarettes, uncomplicated; Z20.822 Contact with and (suspected) exposure to COVID-19
CPT/HCPCS: 87430; 99283; J7512

== ENCOUNTER 2022-08-05 07:07 | Outpatient (CLI) | payer OTHER | END 2022-08-05 07:08 | disposition home or self-care (01) | LOC: BICULT 07:07 | PROVIDERS: ATTEND Nurse Practitioner Family | DX: R10.2 Pelvic and perineal pain (principal) | CPT/HCPCS: 76700 ==

== ENCOUNTER 2022-12-10 18:42 | Emergency (ER) | payer OTHER ==
[2022-12-10 20:03] LABS: #Basophils 0.1 thou/uL (0.0-0.2); #Eosinphils 0.1 thou/uL (0.0-0.7); #Monocytes 0.4 thou/uL (0.11-0.59); #Neutrophils 6.2 thou/uL (1.40-6.50); %Basophils 0.6 % (0.0-1.0); %Lymphocytes 22.7 % (21.0-51.0); %Neutrophils 70.5 % (42.0-75.0); Hematocrit 38.2 % (36.0-47.0); Hemoglobin 12.2 g/dL (12.0-16.0); Mean Corpuscular HGB CONC 31.9 g/dL (32.0-36.0); Mean Corpuscular Hemoglobin 27.1 pg (27.0-31.0); Mean Corpuscular Volume 84.7 fl (78.0-98.0); Mean Platelet Volume 10.9 fL (7.4-10.4); Platelet Count 267 10x3/uL (130-400); RBC Distribution Width 13.4 % (11.5-14.5); Red Blood Cell (RBC) Count 4.51 mill/uL (4.20-5.40); White Blood Cell (WBC) Count 8.8 10x3/uL (4.8-10.8)
[2022-12-10 20:28] LABS: ALT (SGPT) 16 U/L (8-55); AST (SGOT) 13 U/L (5-34); Albumin 4.2 g/dL (3.5-5.0); Alkaline Phosphatase 72 U/L (40-110); Anion Gap 12 mmol/L (10-20); BUN (Urea Nitrogen) 10 mg/dL (7.0-18.7); Bilirubin, Total 0.2 mg/dL (0.2-1.2); Calc. Creatinine Clearance 0 mL/min (70-130); Calcium 9.6 mg/dL (7.8-10.44); Carbon Dioxide 23 mmol/L (22-29); Chloride 104 mmol/L (98-107); Estimated GFR 121; Globulin 3.3 g/dL (2.4-3.5); Glucose 90 mg/dL (70-105); Potassium 3.8 mmol/L (3.5-5.1); Protein, Total 7.5 g/dL (6.0-8.3); Sodium 135 mmol/L (136-145)
[2022-12-10 22:00] LABS: Bacteria/HPF None Seen HPF (None Seen); Bilirubin Negative (Negative); Blood, Urine Trace (Negative); CAUTI Indications for Culture Pregnancy; Clarity Clear (Clear); Glucose, Urine (Dipstick) Normal (Negative); Ketone, Urine Trace mg/dL (Negative); Leukocyte Negative Leu/uL (Negative); Nitrite Negative (Negative); Protein, Urine (Dipstick) Negative (Neg-Trace); RBC/HPF 0-3 HPF (0-3); Specific Gravity, Urine 1.024 (1.002-1.036); Squamous Epithelial 0-3 HPF (0-3); Urobilinogen Normal mg/dL (Less than 2); WBC/HPF 0-3 HPF (0-3)
[2022-12-10 22:02] LABS: Urine Culture Reflex Yes Yes
== END 2022-12-10 22:13 | disposition home or self-care (01) ==
LOC: ERS 18:42
DX: O20.8 Other hemorrhage in early pregnancy (principal); F17.210 Nicotine dependence, cigarettes, uncomplicated; Z3A.01 Less than 8 weeks gestation of pregnancy
CPT/HCPCS: 36415; 76856; 80053; 81001; 84702; 85025; 86900; 86901; 87086

== ENCOUNTER 2022-12-29 09:41 | Emergency (ER) | payer OTHER ==
[2022-12-29] MEDS ORDERED: Metoclopramide HCl 10 MG/2 ML VIAL ONE (10:58)
[2022-12-29] MEDS ORDERED: diphenhydrAMINE 50 MG/ML VIAL ONE (10:58)
== END 2022-12-29 14:36 | disposition home or self-care (01) ==
LOC: ERS 09:41
DX: O46.91 Antepartum hemorrhage, unspecified, first trimester (principal); Z3A.11 11 weeks gestation of pregnancy; Z87.891 Personal history of nicotine dependence
CPT/HCPCS: 76801; 96365; 96366; 96375; J1200; J2765

== ENCOUNTER 2023-04-15 11:24 | Emergency (ER) | payer OTHER | END 2023-04-15 11:57 | LOC: ERS 11:24 | DX: Z53.21 Procedure and treatment not carried out due to patient leaving prior to being seen by health care provider (principal) ==

== ENCOUNTER 2024-01-26 11:17 | Emergency (ER) | payer OTHER ==
[2024-01-26] MEDS ORDERED: Acetaminophen 500 MG TAB ONE (12:23)
== END 2024-01-26 13:09 | disposition home or self-care (01) ==
LOC: ERS 11:17
DX: B34.9 Viral infection, unspecified (principal); Z87.891 Personal history of nicotine dependence
CPT/HCPCS: 87428; 99283

== ENCOUNTER 2024-09-21 07:51 | Emergency (ER) | payer BC, OTHER ==
[2024-09-21] MEDS ORDERED: Ondansetron PF 4 MG/2 ML Vial ONE ×2 (08:10→10:07)
[2024-09-21 08:24] LABS: #Basophils 0.04 10x3/uL (0.0-0.2); #Eosinophils 0.10 10x3/uL (0.0-0.7); #Monocytes 0.26 10x3/uL (0.11-0.59); #Neutrophils 4.20 10x3/uL (1.40-6.50); %Basophils 0.7 % (0.0-1.0); %Eosinophils 1.8 % (0.0-10.0); %Lymphocytes 18.5 % (21.0-51.0); %Monocytes 4.6 % (0.0-10.0); %Neutrophils 74.0 % (42.0-75.0); Hematocrit 36.8 % (36.0-47.0); Hemoglobin 11.6 g/dL (12.0-16.0); Mean Corpuscular Hemoglobin 25.4 pg (27.0-31.0); Mean Corpuscular Volume 80.7 fL (78.0-98.0); Platelet Count 164 10x3/uL (130-400); Red Blood Cell (RBC) Count 4.56 mill/uL (4.20-5.40); White Blood Cell (WBC) Count 5.67 10x3/uL (4.8-10.8)
[2024-09-21 08:28] LABS: Glucose, Urine (Dipstick) Negative (Negative); Leukocyte Negative (Negative); Protein, Urine (Dipstick) 30 mg/dL (Neg-Trace); Specific Gravity, Urine Greater/Equal 1.030 (1.005-1.030)
[2024-09-21 08:31] LABS: Pregnancy Test - Urine (BHCG) Negative (Negative); Pregu Control Background? CLEAR/WHITE (CLR/WHITE); Pregu Control Bar Appear? YES (CONTROL BAR)
[2024-09-21 08:36] LABS: Bacteria/HPF 3+ HPF (None Seen); CAUTI Indications for Culture Pelvic or flank pain; Urine Culture Reflex No No
[2024-09-21 08:43] LABS: ALT (SGPT) 11 U/L (Less than 34); AST (SGOT) 36 U/L (11-34); Albumin 3.6 g/dL (3.1-4.5); Alkaline Phosphatase 61 U/L (40-110); Anion Gap 16 mmol/L (10-20); BUN (Urea Nitrogen) 7 mg/dL (7.0-18.7); Bilirubin, Total 0.4 mg/dL (0.3-1.2); Calc. Creatinine Clearance 0 mL/min (70-130); Calcium 8.8 mg/dL (7.8-10.44); Carbon Dioxide 18 mmol/L (22-29); Chloride 108 mmol/L (98-107); Globulin 4.0 g/dL (2.4-3.5); Glucose 102 mg/dL (70-105); Lipase 15 U/L (8-78); Potassium 4.5 mmol/L (3.5-5.1); Sodium 137 mmol/L (136-145)
[2024-09-21] MEDS ORDERED: Ketorolac Tromethamine 30 MG (1 mL) VIAL ONE ×2 (10:04→12:29)
[2024-09-21 12:23] LABS: Bacteria/HPF None Seen HPF (None Seen); CAUTI Indications for Culture Dysuria,urgency,freq; Glucose, Urine (Dipstick) Normal (Negative); Leukocyte Negative Leu/uL (Negative); Protein, Urine (Dipstick) 30 mg/dL (Neg-Trace); RBC/HPF Greater than 50 HPF (0-3); Yeast-Budding 2+ HPF (None Seen)
[2024-09-21 12:29] LABS: Specific Gravity, Urine Greater than 1.050 (1.002-1.036)
[2024-09-21 12:34] LABS: WBC/HPF None Seen HPF (0-3)
[2024-09-21 12:35] LABS: Urine Culture Reflex No No
== END 2024-09-21 14:01 | disposition home or self-care (01) ==
LOC: ERS 07:51
DX: N13.2 Hydronephrosis with renal and ureteral calculous obstruction (principal)
CPT/HCPCS: 51701; 74177; 80053; 81001; 81025; 83690; 85025; 87086; 96361; 96374; 96375; 96376; J1885; J2270; J2405